=== PATIENT | female | born 2000 | race Caucasian/White ===

== ENCOUNTER 2022-12-21 14:35 | Emergency (ER) | payer SELFPAY ==
[2022-12-21 14:36] VITALS: BP 113/76; PULSE 92; RESP 16; TEMP 36.2; O2SAT 100; BMI 27.8
--- NOTE | 2022-12-21 14:45 | RAD_ITS ---
STUDY: X-RAY - RIGHT WRIST REASON FOR EXAM: Female, 22 years old. Wrist pain following injury. TECHNIQUE: 3 view(s) of the wrist were obtained. COMPARISON: None. FINDINGS: Normal visualized distal radius and ulna. Normal radiocarpal articulation. Normal distal radioulnar articulation. Normal carpal bones. Normal carpal articulations. Normal carpometacarpal articulation of the thumb. Normal second through fifth carpometacarpal articulations. Normal visualized metacarpal bones. The soft tissue structures are unremarkable. RAD/Wrist min 3 Views IMPRESSION: Normal x-ray examination of the wrist. Electronically Signed: Remigio Watts MD at 15:02 EST ,
--- NOTE | 2022-12-21 17:14 | ED.RN ---
pt reports that she will follow up with her pcp for care. lwbs
== END 2022-12-21 17:15 | disposition left against medical advice (07) ==
LOC: ED 17:53
DX: M25.531 Pain in right wrist (principal)
CPT/HCPCS: 73110

== ENCOUNTER 2024-10-04 20:19 | Emergency (ER) | payer OTHER, SELFPAY ==
[2024-10-04 20:19] VITALS: BP 137/101; PULSE 109; RESP 16; TEMP 37.2; O2SAT 98; BMI 29.5
[2024-10-04 21:21] VITALS: BP 133/78; PULSE 94; RESP 18; TEMP 37.2; O2SAT 99
--- NOTE | 2024-10-04 21:27 | EX.ED.DYSGE1 ---
HPI History of Present Illness Chief Complaint: Dental Detail of Chief Complaint: Dental pain and facial swelling Informant: patient Narrative Narrative: Patient presents to the emergency department with dental pain that initially started 4 days ago. She went to the emergency department at [facility] where she had attempted incision and drainage of the suspected abscess and she was started on amoxicillin. Patient subsequently the next day went to walk-in emergency dentistry and asked to have her tooth pulled at which time they refused because of the amount of swelling she was having and she was started on clindamycin. Patient presents now with ongoing swelling. She denies fevers or chills or sweats. PFSH PFS Medical History no medical history Home Medications ?Medication ?Instructions ?Recorded ?Last Taken ?Type clindamycin HCl 300 mg capsule 300 mg PO 10/04/24 Unknown History ketorolac 10 mg tablet 10 mg PO Q8H PRN PRN pain 10/04/24 Unknown History oxycodone-acetaminophen 5 mg-325 1 tab PO Q6H PRN PRN pain 10/04/24 Unknown History mg tablet Allergy/AdvReac Type Severity Reaction Status Date / Time cephalexin (From Keflex) Allergy Hives Verified 10/04/24 20:19 Family History no significant family his Surgical History no surgical history Social History Smoking Status: Current every day smoker tobacco type: e-cigarettes ROS ROS ED Review of Systems ROS Unobtainable: other Constitutional Constitutional ED: Reports lethargy; Denies chills, fever(s), sweats or weight loss Eyes Eyes: Denies blurry vision, change in vision or diplopia ENT ENT ED: Reports other Details: Dental pain and facial swelling ; Denies rhinorrhea or sore throat Cardiovascular Cardiovascular: Denies chest pain, orthopnea or racing heartbeat Respiratory/Chest Respiratory/Chest: Denies cough, dyspnea, dyspnea on exertion, orthopnea or sputum Gastrointestinal Gastrointestinal: Denies abdominal pain, diarrhea, nausea or vomiting Genitourinary Genitourinary ED: Denies dysuria, hematuria or urinary frequency Musculoskeletal Musculoskeletal: Denies arthralgias, back pain, myalgias or neck pain Integumentary Denies abscess, Abrasions or rash Neurologic Neurologic: Denies headache(s) or weakness Psychiatric Psychiatric: Denies anxiety, depression or suicidal thoughts Endocrine Endocrinology: Denies polydipsia, polyphagia or polyuria Hematologic/Lymphatic Hematologic/Lymphatic: Denies easy bleeding, easy bruising or lymphadenopathy Allergic/Immunologic Allergic/Immunologic ED: Denies mouth swelling, tongue swelling or urticaria EXAM Physical Exam Const Vital Signs: 10/04/24 20:19 10/04/24 21:21 10/04/24 22:00 Temperature 98.9 F 98.9 F 98.9 F Temperature Source Oral Oral Oral Pulse Rate 109 H 94 84 Respiratory Rate 16 18 18 Blood Pressure 137/101 H 133/78 H 131/76 H Blood Pressure Mean 113 96 94 Pulse Ox 98 99 97 Oxygen Delivery Method Room Air Room Air Room Air Positive well nourished and well developed General Appearance ED: well developed and NAD HEENT Reports TM's clear and moist mucous membranes HEENT Narrative: Patient with soft tissue swelling to the right lower jaw. She has gingival erythema and swelling with tenderness to palpation over tooth #30. Mild fluctuance. No facial cellulitis noted normocephalic and atraumatic; Negative for trauma or tenderness Tympanic Membrane ED: Yes TM's clear Eyes PERRL and EOMs intact bilaterally General Eye ED: Negative for pale conjunctiva or scleral icterus Neck no lymphadenopathy, supple and no JVD General: Negative for tenderness Chest Wall inspection of chest normal and palpation of chest normal Chest: Negative for tenderness Resp normal respiratory effort and clear to auscultation bilaterally Effort and Inspection: Negative for respiratory distress or pain with movement Auscultation: Negative for rhonchi, wheezes or diminished lung sounds Cardio regular rate, regular rhythm, S1 normal heart sound, S2 normal heart sound and no murmurs Peripheral Pulses: pulses 2+ throughout GI normal to inspection, nondistended, normoactive bowel sounds, soft to palpation, non-tender, non-distended and no masses Back/Spine no CVA tenderness and no thoracic nor lumbar tenderness Extremity normal to inspection General Extremety ED: Negative for edema General Extremity: Negative for edema Neuro oriented x3, CN's II-XII intact bilaterally, no sensory deficits noted and gait normal Sensorium / Orientation: awake, alert, oriented to person, oriented to place and oriented to time Motor Exam: strength 5/5 throughout and strength abnormal Psych mental status grossly normal Skin no rashes or lesions noted and no wounds MDM MDM MDM Narrative Medical decision making narrative: Patient presents with ongoing facial swelling. Clinically suspect a right lower dental abscess. No evidence of Krishan's angina. Floor the mouth is soft. She does have some mild trismus on exam. IV line will be established. Patient will be medicated with Toradol. Will obtain basic labs as well as a CT scan to evaluate further. I attempted incision and drainage of the suspected fluctuant portion of the abscess in moderate amount of blood was expressed with minimal purulent debris. Care of patient turned over to evening physician awaiting CT results and final disposition. Lab Data Attestation: I reviewed the patient's lab results. Labs: Laboratory Results - last 24 hr 10/04/24 21:29 WBC 11.5 H RBC 4.85 Hgb 13.9 Hct 40.7 MCV 83.9 MCH 28.7 MCHC 34.2 RDW Std Deviation 39.7 RDW Coeff of Gt 13.0 Plt Count 276 MPV 9.3 Immature Gran % (Auto) 0.400 Neut % (Auto) 69.1 Lymph % (Auto) 19.4 Edmonson % (Auto) 9.5 Eos % (Auto) 1.0 Baso % (Auto) 0.6 Absolute Neuts (auto) 8.0 H Absolute Lymphs (auto) 2.24 Nucleated RBC % 0 Sodium 136 Potassium 4.0 Chloride 100 Carbon Dioxide 21.5 Anion Gap 15 BUN 13 Creatinine 0.59 L Estim Creat Clear Calc 148.70 Est GFR (MDRD) Non-Af 129 BUN/Creatinine Ratio 22.0 H Glucose 81 Lactic Acid 1.1 Calcium 10.0 Discharge Plan Triage Chief Complaint: Dental ED Provider: Laquita Brooke Dx/Rx/DC Orders Clinical Impression: Abscess, dental Prescriptions: No Action clindamycin HCl 300 mg capsule 300 mg PO ketorolac 10 mg tablet 10 mg PO Q8H PRN PRN (Reason: pain) oxycodone-acetaminophen 5-325 mg tablet 1 tab PO Q6H PRN PRN (Reason: pain) Primary Care Provider: Care Physician,No Primary Referrals: Care Physician,No Primary [Primary Care Provider] - Print Language: [place]
[2024-10-04] MEDS: Ketorolac 30 MG/ML Syringe IV (21:37)
[2024-10-04 21:41] LABS: Hematocrit 40.7 % (37-47); Hemoglobin 13.9 g/dL (12.0-15.0); Immature Granulocytes Count 0.050 X10^3/uL (0.0-0.0); Mean Corp Hgb Conc 34.2 g/dL (32-36); Mean Corpuscular Volume 83.9 fL (81-99); Mean Platelet Vol. 9.3 fl (6.2-12.0); NRBC Flagged by Analyzer 0 % (0-5); Platelet Count 276 K/mm3 (150-450); RBC Distribution Width CV 13.0 % (11.6-14.6); RBC Distribution Width SD 39.7 fl (35.1-43.9); Red Blood Count 4.85 M/mm3 (4.2-5.4); White Blood Count 11.5 K/mm3 (4.4-11.0)
[2024-10-04] MEDS: Piperacil/Tazobactam 4.5 GM in 0.9% Normal Saline (100mL MB+) 100 ML IV (21:42)
--- OUTSIDE RECORDS SUMMARY | 2024-10-04 21:52 | XMS RPT_ITS | CCD ---
Author Organization [facility] Care Team Providers Care Rug Dyer Name Role Phone Guillermo Lewis Unavailable Unavailable Primay Care Physicia, No Unavailable Unavail able Unavailable Primary Care Provider UnavailAKASH Ramirez Attending Unavailable SARAH YANEZ DO Attending Unavailable BLACK, SARAH LAY Primary Care Unavailable SARAH YANEZ DO Admitting Unavailable YULISSA HSIEH Consulting Unavailable PROVIDER, UNKNOWN Consulting Unavailable Allergies Allergy Classification Reported Allergen(s) Allergy Type Date of Onset Reaction(s) Facility (2 sources) cephalexin; Translations: [CEPHALEXIN] Drug Allergy 06-23-2016 [facility] Repository (2 sources) Cephalexin Drug Allergy 12-21-2022 [facility] (1 source) Cephalexin Drug Allergy [facility] Repository Problems Active Problems Problem Classification Problem Date Documented Da te Episodic/Chronic Other inflammatory condition of skin (1 source) Sunburn of first degree; Translations: [Sunburn of first degree] 08-25-2024 Episodic Other inflammatory condition of skin (1 source) Sunburn of first degree; Translations: [Sunburn of first degree] Onset: 08-25-2024 Episodic Past or Other Problems Problem Classification Problem Date Documented Da te Episodic/Chronic Blindness and vision defects (1 source) Other visual disturbances; Translations: [OTHER VISUAL DISTURBANCES] Onset: 07-27-2016 Episodic Headache, including migraine (1 source) Headache; Translations: [HEADACHE] Onset: 07-27-2016 Episodic Results Test Name Value Interpretation Reference Range Facil ity ED MED ADMINISTRATION DETAIL on 10-02-2024 ED MED ADMINISTRATION DETAIL Rn Bariatric - JUDITH ARAUZ, : 2000, , Medication Administration Record [address] [address] [id number] 10/02/2024 Patient: JUDITH ARAUZ Sex: Female : 2000 Age: 24y MEASUREMENTS: Wt: 77.1 kg, Ht/Hussain: 64.0 in, BMI: 29.18 ALLERGIES: Cephalosporins Medication Ordered Medication Administration Date/Time Lidocaine-Epinephr Completed ine 1% Injection 10 03:03 10/02/2024 mL Joyce Méndez R.N. Order Comments: 03:03 10/02/[address] Black Méndez R.N. Pen-Vee K PO 500 03:02 10/02 Pen-Vee K PO 500 Given mg (NOW x1) mg given. Allergies verified and 03:02 10/02/2024 confirmed 5 rights. - 03:02 Ella Key R.N. Scanned OxyCODONE-APAP 03:15 Given 5-325 (Percocet) PO 10/02 OxyCODONE-APAP 03:15 10/02/2024 1 tab (NOW x1, 5-325 (Percocet) PO 1 tab given. Joyce Méndez R.N. HIGH ALERT Allergies verified and confirmed Scanned MEDICATION) 5 rights. - 03:15 Joyce Méndez R.N. 1 of 1 Normal [facility] ED NURSES CLINICAL NOTEon ED NURSES CLINICAL NOTE Nurse Narrative - JUDITH ARAUZ, : 2000, , Nurse Clinical Narrative [address] [address] [id number] 10/02/2024 02:49:00 Patient: JUDITH ARAUZ Sex: Female : 2000 Age: 24y Disposition: Discharge to Home Disposition Decision Time: 03:20 10/02/2024 Departure Time: 03:27 10/02/2024 TRIAGE Arrived by private vehicle. Historian: (patient). Accompanied by friend. Primary physician (none). Triage time: 02:41 10/02/2024. Acuity: LEVEL 4. Chief Complaint: RIGHT LOWER TOOTHACHE and SWELLING OF JAW / FACE. This started last night. The patient has had a toothache. SEPSIS SCREEN: NEGATIVE. SIRS criteria negative. No possible sources of infection. -- 02:10/02/24 NAHEED Méndez R.N. 02:10/02/24. BP: 136/93 MAP: 107. HR: 102. RR: 17. O2 saturation: 97% Temperature: 97.4 F. Pain level now 8/10. -- 02:10/02/24 NAHEED Méndez R.N. Measurements: 02:10/02/24 Wt: 77.1 kg, Ht/Hussain: 64.0 in, BMI: 29.18 -- 02:10/02/24 NAHEED Méndez R.N. Medications: no known home medications -- 02:10/02/24 NAHEED Méndez R.N. Allergies: 1 of 3 Nurse Narrative - JUDITH ARAUZ, : 2000, , Cephalosporins -- 02:10/02/24 NAHEED Méndez R.N. Problems: no known problem -- 02:10/02/24 NAHEED Méndez R.N. Surgeries: no known surgical history -- 02:10/02/24 NAHEED Méndez R.N. History 02:10/02/24. SOCIAL HX: Regular vaping. Occasional alcohol use. No drug use. The patient has not traveled outside the [place] Infectious disease exposure: No infectious disease exposure. ABUSE ASSESSMENT: The patient answered yes to the question(s) Do you feel safe in your home? and no to the question(s) Are you afraid to go home?. SELF HARM ASSESSMENT: Self harm assessment was performed. The patient answered no to the question(s) Have you recently felt down, depressed, or hopeless? and Do you have thoughts of harming or killing yourself?. FALL RISK ASSESSMENT: Fall risk assessment completed. No risk factors identified. -- 02:10/02/24 NAHEED Méndez R.N. Interventions 02:10/02/24. Identification band and allergy band on patient. -- 02:10/02/24 NAHEED Méndez R.N. PHYSICAL ASSESSMENT 02:57 10/02/24. Ambulatory to room. GENERAL / NEURO / PSYCH: Alert. Oriented X 4. Appears in no acute distress. HEENT: Pupils equal, round and reactive to light. Voice within normal limits. Dental tenderness (right lower molar). Mucous membranes are pink. RESPIRATORY: Respirations not labored. SKIN: Skin is warm and dry. Normal skin turgor. -- 02:57 10/02/24 NAHEED Méndez R.N. 2 of 3 Nurse Narrative - JUDITH ARAUZ, : 2000, , NURSING PROGRESS NOTES 02:55 10/02/24. ( MD at bedside discussing plan of care). -- 02:55 10/02/24 NAHEED Méndez R.N. 03:02 10/02/24. Pen-Vee K PO 500 mg given. Allergies verified and confirmed 5 rights. -- 03:02 10/02/24 NAHEED Méndez R.N. 03:03 10/02/24. ( MD at bedside draining abscess). -- 03:13 10/02/24 NAHEED Méndez R.N. 03:15 10/02/24. OxyCODONE-APAP 5-325 (Percocet) PO 1 tab given. Allergies verified and confirmed 5 rights. -- 03:15 10/02/24 NAHEED Méndez R.N. 03:20 10/02/24. ( Ice pack given to pt at this time). -- 03:20 10/02/24 NAHEED Méndez R.N. DISPOSITION / DISCHARGE 03:10/02/24. BP: 141/78 MAP: 99. -- 03:27 10/02/24 NAHEED Méndez R.N. Departure time: 03:10/02/2024. Condition at departure: stable. No learning barriers present. Reviewed medication(s). Treatments reviewed. Reviewed referral to a dentist. Patient verbalized understanding. Written instructions provided in Hebrew. The patient was discharged home and accompanied by lathe hand. The patient left ambulatory and via private vehicle. Perioperative Manager driving. -- 03:28 10/02/24 NAHEED Méndez R.N. (Electronically signed by Joyce Méndez R.N. 10/02/24 03:28:29 EDT) Generated by [facility] 3 of 3 Normal [facility] ED ORDER SHEET (CPOE ONLY)on 10-02-2024 ED ORDER SHEET (CPOE ONLY) Order Sheet - JUIDTH ARAUZ, : 2000, , Order Sheet [id number] [place] [address] [id number] 10/02/2024 Patient: JUDITH ARAUZ Sex: Female : 2000 Age: 24y MEASUREMENTS: Wt: 77.1 kg, Ht/Hussain: 64.0 in, BMI: 29.18 ALLERGIES: Cephalosporins MEDICATION/IV/DRIP/F LUID ORDERS Order Description Priority Entered Acknowledged Completed Lidocaine-Epinephrin e 1% 02:58 10/02/2024 03:03 [id number] mL (NOW x1) Sarah Yanez D.O. 10/02/2024 Joyce Méndez R.N. Order Comments: 03:03 10/02/2024: Order Completed per Dr. Black Méndez R.N. Pen-Vee K PO500 mg (NOW x1) 02:59 10/02/2024 03:02 Sarah Yanez D.O. 10/02/2024 Joyce Méndez R.N. Reason for ordering with alerts: Clinical consideration given --02:59 10/02/2024 Sarah Yanez D.O. OxyCODONE-APAP 5-325 03:13 10/02/2024 03:15 (Percocet) PO1 tab (NOW x1, Sarah Yanez D.O. 10/02/2024 HIGH ALERT MEDICATION) Joyce Méndez R.N. LAB ORDERS 1 of 2 Order Sheet - JUDITH ARAUZ, : 2000, , Order Description Priority Entered Acknowledged Collected Completed DIAGNOSTIC STUDY ORDERS Order Description Priority Entered Acknowledged Completed STAFF ORDERS Order Description Priority Entered Acknowledged Collected Completed [Electronically signed by Sarah Yanez D.O. (10/02/2024 03:29 EDT)] 2 of 2 Normal [facility] ED PHYSICIAN CLINICAL REPORT on 10-02-2024 ED PHYSICIAN CLINICAL REPORT Narrative - JUDITH ARAUZ : 2000, , Physician Clinical Narrative [facility] [address] [place] [address] [id number] 10/02/2024 02:49:00 Patient: JUDITH ARAUZ Sex: Female : 2000 Age: 24y Disposition: Discharge to Home Disposition Decision Time: 03:20 10/02/2024 Departure Time: 03:27 10/02/2024 Measurements Wt: 77.1 kg, Ht/Hussain: 64.0 in, BMI: 29.18 Initial Vital Sign Measured Time BP MAP HR RR O2Sat ETCO2 Temp Pain GCS RTS 02:53 10/02/2024 136/93 107 102 17 97% 97.4 F 8 Time Seen: 02:40 10/02/2024. Arrived- By private vehicle. Historian- patient. HISTORY OF PRESENT ILLNESS Chief Complaint: DENTAL PAIN. This started yesterday and is still present. No sore throat, mouth sores, nasal discharge or congestion or ear pain. No swollen jaw or face, jaw pain or facial pain. The patient has had toothache. Similar symptoms previously. None. Recent medical care: Not recently seen/assessed. REVIEW OF SYSTEMS ENDO/HEME/LYMPH: No enlarged lymph nodes. RESPIRATORY: No cough or difficulty breathing. EYES: No eye discomfort. CONSTITUTIONAL: No fever. : No difficulty with urination. NEUROLOGICAL: No headache 1 of 4 Narrative - JUDITH ARAUZ, : 2000, , or fainting episodes. MUSCULOSKELETAL: No joint pain. SKIN: No skin rash. GI: No nausea, diarrhea, abdominal pain or vomiting. CVS: No chest pain. PAST HISTORY See nurses notes. no known problem Surgeries: no known surgical history Medications: no known home medications Allergies: Cephalosporins SOCIAL HISTORY Smoker- current status unknown. Regular vaping. Regular alcohol use. ADDITIONAL NOTES The nursing notes have been reviewed. PHYSICAL EXAM Appearance: Alert. No acute distress. Eyes: Pupils equal, round and reactive to light. ENT: Dental decay and tenderness. Ears normal. Nose normal. Pharynx normal. Lips normal. Uvula midline. No peritonsillar mass, muffled or hoarse voice, drooling or trismus. (Positive swelling to the right mandible.). Neck: Trachea midline. No adenopathy. Neck supple. CVS: Normal heart rate and rhythm. Heart sounds normal. Pulses normal. Respiratory: No respiratory distress. Breath sounds normal. Chest nontender. Abdomen: Soft and nontender. No organomegaly. Skin: Normal skin color. No rash. 2 of 4 Narrative - JUDITH ARAUZ, : 2000, , Extremities: Extremities exhibit normal ROM. Extremities nontender. Neuro: Oriented X 3. No motor deficit. No sensory deficit. PROGRESS AND PROCEDURES Dental Nerve Block: Time: 02:59 10/02/2024. Inferior Alveolar. Procedure performed on the right side. Landmarks were identified. Total volume of 5 mL 1% Lidocaine infiltrated using a 27-gauge needle. Patient cooperative during procedure. Complications encountered- bleeding. Excellent anesthesia achieved. Incision Drainage of Abscess: Time: 03:03 10/02/2024. The abscess is located (right lower molar). The risks of the procedure, benefits and alternatives were explained. Local anesthesia provided using 1% lidocaine with epi. The abscess was incised with a #11 surgical blade. A moderate amount of pus was drained. Cavity was packed with gauze. Patient tolerated procedure well. Patient was observed for 30 minutes. Estimated blood loss: 2 mL. MEDICAL DECISION MAKING: Test(s) not done: based on risk / benefit analysis. Narcotics and antibiotics were given. The pain has resolved. The exam got better. ( Dental block with 1% lidocaine with epinephrine). (Complaining of pain and swelling to the right lower jaw. The swelling started a couple hours ago. But she states her right lower molar has been painful since Bo which is 2 days ago. Denies any fever. Denies any trauma to the tooth. Does not have a dentist. On exam she does have considerable swelling to the area between the buccal mucosa in the gum along the right lower dentition consistent with a dental abscess. She does have some swelling to the right mandible adjacent to that area. Not a lot of swelling but it is definitely present. No drooling. No pharyngeal erythema. Neck is supple. No anterior posterior cervical lymphadenopathy. Right tympanic membrane is not erythematous. Right buccal mucosa adjacent to the right lower gumline was incised with a 11. Blade after the area was anesthetized with a dental block using 5 mL 1% lidocaine with epinephrine. Patient did get good local anesthesia with that and tolerated the incision and drainage well. The area did drain a moderate amount of white. Discharge. Patient was placed on pen VK 500 mg 1 p.o. q.6 hours times 10 days. Was given a prescription for Toradol because she would like to go to work tonight. Was also given a prescription for Percocet 1 ever (more content not included)... Normal [facility] ED SUPER BILLon 10-02-2024 ED SUPER BILL [facility] - TOMAS ARAUZNON, : 2000, , [address] [address] [id number] 10/02/2024 Patient: JUDITH ARAUZ Sex: Female : 2000 Age: 24y Item Facility Professional Category Description Code Code Quantity Fee Total Nurse/E/M EMERGENCY 916137 1 $0.00 $0.00 DEPARTMENT VISIT MODERATE SEVERITY (47688-86) Physician/Procedures Nerve block: [id number] [id number] 1 $0.00 $0.00 Dental (74563-IP) Grand Total $0.00 Providers Sarah Yanez D.O. Chief Complaint DENTAL PAIN. Principal Diagnosis Alveolar dental abscess. No sinus tract or Santos's angina. 1 of 2 [facility] - JUDITH ARAUZ, : 2000, , ICD-10 Codes K04.7: Periapical abscess without sinus 2 of 2 Normal [facility] ED VISIT SUMMARYon ED VISIT SUMMARY Visit Overview - JUDITH ARAUZ, : 2000, , Visit Overview [id number] [facility] [place] [address] [id number] 10/02/2024 Patient: JUDITH ARAUZ Sex: Female : 2000 Age: 24y 10/02/2024 03:30 AM EDT ED Arrival:02:49 10/02/2024 EDT Status: Recent Travel:no Language:eng Adv Directive: Isolation Status: Ethnicity:N Fall Risk:no risk Infectious Disease Exposure:no Measurements:5'4 / 162.6 Self-Harm Status:risk Sepsis Screen:negative cm 170.0 lb / 77.1 kg Chief Complaint:RIGHT LOWER TOOTHACHE, SWELLING OF JAW / FACE, and (none) ALLERGIES Cephalosporins HOME MEDICATIONS None PAST MEDICAL HISTORY / PROBLEMS None See nurses notes 1 of 3 Visit Overview - JUDITH ARAUZ, : 2000, , PAST SURGICAL HISTORY No Surgeries SOCIAL HISTORY Smoking status: Unknown Alcohol use: Yes Drug use: No ED COURSE MEDICATIONS GIVEN IN EMERGENCY DEPARTMENT 03:02 10/02/24 Pen-Vee K PO 500 mg 03:15 10/02/24 OxyCODONE-APAP 5-325 (Percocet) PO 1 tab IV SITE INFORMATION INTAKE OUTPUT REASSESMENT (most recent) 02:57 10/02/24. Ambulatory to room. GENERAL / NEURO / PSYCH: Alert. Oriented X 4. Appears in no acute distress. HEENT: Pupils equal, round and reactive to light. Voice within normal limits. Dental tenderness (right lower molar). Mucous membranes are pink. RESPIRATORY: Respirations not labored. SKIN: Skin is warm and dry. Normal skin turgor. VITAL SIGNS First Vitals Last Vitals Temp 02:53 10/02/24 97.4 F Temp 03:22 10/02/24 BP 02:53 10/02/24 136/93 BP 03:22 10/02/24 141/78 HR 02:53 10/02/24 102 HR 03:22 10/02/24 RR 02:53 10/02/24 17 RR 03:22 10/02/24 O2 Sat 02:53 10/02/24 97% O2 Sat 03:10/02/24 Pain 02:53 10/02/24 8 Pain 03:10/02/24 ETCO2 02:53 10/02/24 ETCO2 03:10/02/24 GCS 02:53 10/02/24 GCS 03:10/02/24 2 of 3 Visit Overview - JUDITH ARAUZ, : 2000, , First Vitals Last Vitals RTS 02:53 10/02/24 RTS 03:10/02/24 PROCEDURES NURSING INTERVENTIONS LABS / STUDIES CLINICAL IMPRESSION ALVEOLAR DENTAL ABSCESS. NO SINUS TRACT OR SANTOS'S ANGINA 3 of 3 Normal [facility] ED VITALS FLOW SHEETon 10-02 ED VITALS FLOW SHEET Vitals - JUDITH ARAUZ, : 2000, , Vital Sign Flow Sheet [address] [address] [id number] 10/02/2024 Patient: JUDITH ARAUZ Sex: Female : 2000 Age: 24y Measurements Wt: 77.1 kg, Ht/Hussain: 64.0 in, BMI: 29.18 Measured Time BP MAP HR RR O2Sat ETCO2 Temp Pain GCS RTS 03:10/02/2024 141/78 99 02:53 10/02/2024 136/93 107 102 17 97% 97.4 F 8 1 of 1 Normal [facility] CNOVon 08-25-2024 CNOV Office Visit ([facility]) DAVONTEJUDITH BERRIOS ([id number]) [birth year] F Date Time Provider Department 08/25/24 2:30 PM AKASH PARRISH During your visit today, we recorded the following information about you: Temperature Pulse Respiration Blood pressure 97.7 degrees 81/minute 18/minute 116/80 Weight Last Period 78 kg 07/27/24 Akash Parrish APRN.MARCIO 08/25/2024 2:39 PM Signed This note was created using eMaginriter. Subjective Judith Arauz is a 24 year old female. HPI About 5 days ago patient was [place]ubing [place] a river with no sunscreen and was sunburn on her bilateral legs, anterior aspect. She states that for the most part the sunburn is beginning to resolve other than the bilateral lower legs. She notes that the area is still painful. Denies any blistering. Denies any fever or any other health concerns. Review of Systems As above Objective BP 116/80 Pulse 81 Temp 36.5 ?C (97.7 ?F) Resp 18 Wt 78 kg (171 lb 15.3 oz) LMP 07/27/2024 (Approximate) SpO2 99% Physical Exam Vitals and nursing note reviewed. Constitutional: General: She is not in acute distress. Appearance: Normal appearance. She is not ill-appearing. HENT: Head: Normocephalic. Pulmonary: Effort: Pulmonary effort is normal. Musculoskeletal: General: Normal range of motion. Skin: General: Skin is warm. Comments: Erythema to bilateral lower legs consistent with deep sunburn. No blistering noted. There is no surrounding erythema or streaking noted. Neurological: General: No focal deficit present. Mental Status: She is alert and oriented to person, place, and time. Psychiatric: Mood and Affect: Mood normal. Behavior: Behavior normal. Assessment and Plan ASSESSMENT/PLAN: 1. Sunburn of first degree - ICD9: 692.71, ICD10: L55.0 Patient does note that the bulk of the sunburn area is improving. She denies any increased erythema or streaking. I did discussed with her that symptoms are most consistent with a deep sunburn and symptoms will take several more days to resolve. I strongly encouraged her to avoid sun exposure until symptoms have resolved. Did consider cellulitis but as patient notes that the general area of erythema is decreasing I felt this is unlikely. Akash Parrish APRN.CNP Allergies As of Date: 08/25/2024 Noted Allergy Reaction CEPHALEXIN 08/25/2024 4 - Hives Date Reviewed: 08/25/2024 Reviewed by: Akash Parrish APRN.CNP - Fully Assessed Reason for Visit: Derm Problem [33] Cmt: X 5-6 days, did not have sun block on Primary Visit Diagnosis:Sunburn of first degree [L55.0] Problem List As Of Date: 08/25/2024 (None) Encounter Status:Closed by AKASH PARRISH on 08/25/24 Normal [facility] Vital Signs Date Time Vital Sign Value Performing Clinician Tyleri alex 08-25-2024 14:25-0400 Body temperature 97.7 [degF] Akash Parrish COMPUTING TUTOR.CUTTING TABLE OPERATOR FIRST Work Phone: [facility] 08-25-2024 14:25-0400 Body weight 78 kg Akash Shivani COMPUTING TUTOR.CUTTING TABLE OPERATOR FIRST Work Phone: [facility] 08-25-2024 14:25-0400 Diastolic blood pressure 80 mm[Hg] Akash Shivani COMPUTING TUTOR.CUTTING TABLE OPERATOR FIRST Work Phone: [facility] 08-25-2024 14:25-0400 Heart rate 81 /min Akash Shivani COMPUTING TUTOR.CUTTING TABLE OPERATOR FIRST Work Phone: [facility] 08-25-2024 14:25-0400 Respiratory rate 18 /min Akash Shivani COMPUTING TUTOR.CUTTING TABLE OPERATOR FIRST Work Phone: [facility] 08-25-2024 14:25-0400 SaO2% (BldA) [Mass fraction] 99 % Akash Shivani COMPUTING TUTOR.CUTTING TABLE OPERATOR FIRST Work Phone: [facility] 08-25-2024 14:25-0400 Systolic blood pressure 116 mm[Hg] Akash Shivani COMPUTING TUTOR.CUTTING TABLE OPERATOR FIRST Work Phone: [facility] 12-21-2022 14:36-0500 Body height 162.56 cm [facility] 12-21-2022 14:36-0500 Body mass index (BMI) [Ratio] 27.8 kg/m2 [facility] 12-21-2022 14:36-0500 Body temperature 97.2 [degF] [facility] 12-21-2022 14:36-0500 Body weight 73.48 kg [facility] 12-21-2022 14:36-0500 Diastolic blood pressure 76 mm[Hg] [facility] 12-21-2022 14:36-0500 Heart rate 92 /min [facility] 12-21-2022 14:36-0500 Respiratory rate 16 /min [facility] 12-21-2022 14:36-0500 SaO2% (BldA) [Mass fraction] 100 % [facility] 12-21-2022 14:36-0500 Systolic blood pressure 113 mm[Hg] [facility] Encounters Encounter Date Encounter Type Care Provider Facility Start: 10-02-2024 End: 10-02-2024 Emergency department patient visit SARAH LAY [facility] Start: 08-25-2024 End: 08-25-2024 Patient encounter procedure Akash Parrish APRN.CUTTING TABLE OPERATOR FIRST Work Phone: [facility] Comment on above: Sunburn of first deg ree (Primary Dx) Start: 08-25-2024 End: 08-25-2024 ambulatory AKASH SHIVANI Facility:[facility] Start: 12-21-2022 End: 12-21-2022 Emergency department patient visit [facility] Work Phone: Start: 06-23-2016 End: 06-23-2016 Emergency department patient visit Guillermo Debbie Facility:[facility] Procedures Date Procedure Procedure Detail Performing Clinician Start: 12-21-2022 Plain x-ray of wrist Plan of Treatment Date Care Activity Detail Author Start: 10-16-2024 Influenza vaccination Influenza Vacc ine (#1) [facility] Start: 10-17-2023 Covid-19 Vaccine ( season) Covid-19 Vaccine ( season) [facility] Start: 06-20-2022 Urine microalbumin profile DTaP,Tdap,Td Vaccine (7 - Td or Tdap) [facility] Start: 01-03-2021 Screening for malign ant neoplasm of cervix Cervical Cancer Screening [facility] Start: 01-03-2019 Pneumococcal vaccination Pneum ococcal Vaccine (1 of 2 - PCV) [facility] Start: 01-03-2018 Anxiety Screening Anxiety Screening [facility] Start: 01-03-2018 Depression Screening Depression Scre renan [facility] Start: 01-03-2018 Hepatitis C screening Hepatitis C Sc malou [facility] Start: 01-03-2018 HIV screening HIV Screening [facility] Start: 01-03-2015 HPV Vaccine (1 - 3-d ose series) HPV Vaccine (1 - 3-dose series) [facility] Start: 01-03-2014 Peds To Adult Transi tion Annual Assessment Peds To Adult Transition Annual Assessment [facility] Start: 2012 Peds To Adult Transi tion Initial Discussion Peds To Adult Transition Initial Discussion [facility] Payers Date Payer Category Payer Private Health Insurance [facility] [employer] [id number] 2024 Unknown [id number] 2000 Unknown [id number] Self-pay Unknown [id number] Social History Date Type Detail Facility [facility]: [facility] Start: 2000 Sex Assigned At Female W [facility] Start: 08-25-2024 [facility] History of tobacco use Cigarette Smoker [facility] Start: 08-25-2024 Tobacco use and exposure Smokeless tobacco non-user [facility] Start: 08-25-2024 History of Social function [facility] Start: 08-25-2024 Tobacco use panel [facility] Start: 2000 Sex assigned at Not on file [facility] Progress note 08-25-2024 Note Date & Type Note Facility 08-25-2024 Note HNO ID: [id number] Author: AKASH PARRISH APRN.MARCIO Service: ? Author Type: Nurse Practitioner Type: Progress Notes Filed: 08/25/2024 14:39 Note Text: This note was created using eMaginriter. Subjective Judith Arauz is a 24 year old female. HPI About 5 days ago patient was [place] a river with no sunscreen and was sunburn on her bilateral legs, anterior aspect. She states that for the most part the sunburn is beginning to resolve other than the bilateral lower legs. She notes that the area is still painful. Denies any blistering. Denies any fever or any other health concerns. Review of Systems As above Objective BP 116/80 Pulse 81 Temp 36.5 ?C (97.7 ?F) Resp 18 Wt 78 kg (171 lb 15.3 oz) LMP 07/27/2024 (Approximate) SpO2 99% Physical Exam Vitals and nursing note reviewed. Constitutional: General: She is not in acute distress. Appearance: Normal appearance. She is not ill-appearing. HENT: Head: Normocephalic. Pulmonary: Effort: Pulmonary effort is normal. Musculoskeletal: General: Normal range of motion. Skin: General: Skin is warm. Comments: Erythema to bilateral lower legs consistent with deep sunburn. No blistering noted. There is no surrounding erythema or streaking noted. Neurological: General: No focal deficit present. Mental Status: She is alert and oriented to person, place, and time. Psychiatric: Mood and Affect: Mood normal. Behavior: Behavior normal. Assessment and Plan ASSESSMENT/PLAN: 1. Sunburn of first degree - ICD9: 692.71, ICD10: L55.0 Patient does note that the bulk of the sunburn area is improving. She denies any increased erythema or streaking. I did discussed with her that symptoms are most consistent with a deep sunburn and symptoms will take several more days to resolve. I strongly encouraged her to avoid sun exposure until symptoms have resolved. Did consider cellulitis but as patient notes that the general area of erythema is decreasing I felt this is unlikely. Akash Parrish APRN.CUTTING TABLE OPERATOR FIRST [facility] History of Present illness Narrative 08-25-2024 Akash Parrish APRN.MARCIO - 08/25/2024 2:37 PM EDT Note Date & Type Note Facility 08-25-2024 History of Presen t illness Narrative Images from the original note were not included. This note was created using eMaginriter. Subjective Judith Arauz is a 24 year old female. HPI About 5 days ago patient [place] sunscreen and was sunburn on her bilateral legs, anterior aspect. She states that for the most part the sunburn is beginning to resolve other than the bilateral lower legs. She notes that the area is still painful. Denies any blistering. Denies any fever or any other health concerns. Review of Systems As above Objective BP 116/80 Pulse 81 Temp 36.5 C (97.7 F) Resp 18 Wt 78 kg (171 lb 15.3 oz) LMP 07/27/2024 (Approximate) SpO2 99% Physical Exam Vitals and nursing note reviewed. Constitutional: General: She is not in acute distress. Appearance: Normal appearance. She is not ill-appearing. HENT: Head: Normocephalic. Pulmonary: Effort: Pulmonary effort is normal. Musculoskeletal: General: Normal range of motion. Skin: General: Skin is warm. Comments: Erythema to bilateral lower legs consistent with deep sunburn. No blistering noted. There is no surrounding erythema or streaking noted. Neurological: General: No focal deficit present. Mental Status: She is alert and oriented to person, place, and time. Psychiatric: Mood and Affect: Mood normal. Behavior: Behavior normal. Assessment and Plan ASSESSMENT/PLAN: 1. Sunburn of first degree - ICD9: 692.71, ICD10: L55.0 Patient does note that the bulk of the sunburn area is improving. She denies any increased erythema or streaking. I did discussed with her that symptoms are most consistent with a deep sunburn and symptoms will take several more days to resolve. I strongly encouraged her to avoid sun exposure until symptoms have resolved. Did consider cellulitis but as patient notes that the general area of erythema is decreasing I felt this is unlikely. Akash Parrish APRN.CUTTING TABLE OPERATOR FIRST documented in this encounter [facility] Evaluation note Note Date & Type Note Facility Evaluation note No assessment information availa [facility] Work Phone: Evaluation note Note Date & Type Note Facility Evaluation note Diagnosis Sunburn of first degree- Primary Sunburn documented in this encounter [facility] Summary Purpose Family History No Family History Records FoundNo Family History Records FoundNo Family History Records Found Advance Directives No Advanced Directives Records FoundNo Advanced Directives Records FoundNo Advanced Directives Records Found Chief Complaint and Reason for Visit Chief Complaint right wrist Additional Source Comments INFORMATION SOURCE (unrecogn ized section and content) DATE CREATED AUTHOR 08/11/2017 [facility] DATE CREATED AUTHOR AUTHOR'S ORGANIZ ATION 08/30/2024 [facility] DATE CREATED AUTHOR AUTHOR'S ORGANIZ ATION 10/02/2024 [facility] Care Teams (unrecognized sec tion and content) Team Status: Active Member Role Status Dates No Primary Care Physician Family Provider Active No Primary Care Physician Primary Care Provider Active Team Status: Inactive Member Role Status Dates No Primary Care Physician Primary Care Provider Active Ed Physician Provider Emergency Provider Active Goals (unrecognized section and content) Goals may be documented in a n alternate section Source Comments (unrecognize d section and content) In the event this informatio n is protected by the Federal Confidentiality of Alcohol and Drug Abuse Patient Records regulations: The Federal rules restrict any use of the information to criminally investigate or prosecute any alcohol or drug abuse patient.[facility] Reason for Visit (unrecogniz ed section and content) Reason Comments Derm Problem X 5-6 days, did not have sun block on FOR RECORDS PERTAINING TO PATIENTS WHO ARE OR HAVE BEEN ENROLLED IN A CHEMICAL DEPENDENCY/SUBSTANCEABUSE PROGRAM, SOME INFORMATION MAY BE OMITTED. This clinical summary was aggregated from multiple sources. Caution should be exercised in using it in the provision of clinical care. This summary normalizes information from multiple sources, and as a consequence, information in this document may materially change the coding, format and clinical context of patient data. In addition, data may be omitted in some cases. CLINICAL DECISIONS SHOULD BE BASED ON THE PRIMARY CLINICAL RECORDS. [facility]. provides no warranty or guarantee of the accuracy or completeness of information in this document.
[2024-10-04 22:00] VITALS: BP 131/76; PULSE 84; RESP 18; TEMP 37.2; O2SAT 97
--- NOTE | 2024-10-04 22:00 | CT_ITS ---
PROCEDURE: CT SINUS/FACIAL BONE WITH CONTRAST 10/04/2024 REASON FOR EXAM: RIGHT LOWER DENTAL ABSCESS/FACIAL SWELLING TECHNIQUE: CT SINUS/FACIAL BONE WITH CONTRAST. Coronal and Sagittal reconstruction series were provided. CONTRAST: Isovue 370 VOLUME: 97 mL One or more dose reduction techniques were used (e.g., Automated exposure control, adjustment of the mA and/or kV according to patient size, use of iterative reconstruction technique). RADIATION DOSE SUMMARY: CTDlvol: 29.38 mGy DLP: 804.57 mGycm COMPARISON: None. FINDINGS: Prominent subcutaneous inflammatory changes and swelling/edema in the right perimandibular soft tissues, with a small rim enhancing fluid collection compatible with subperiosteal abscess along the right body of the mandible, measuring up to 22 mm transversely and craniocaudally. No aggressive osseous erosion or destructive changes. Well-aerated paranasal sinuses and bilateral mastoid air cells. The visualized airway is patent and midline. Orbital contents are unremarkable. Major salivary glands appear normal and symmetric. Normal appearance of the partially imaged thyroid gland. Increased number of mildly prominent submental, and right submandibular upper cervical lymph nodes, presumably reactive. CT/Sinus/Facial Bone WITH Contras IMPRESSION: Right perimandibular subperiosteal abscess measuring up to 22 mm, with prominen t inflammatory changes/edema in the surrounding soft tissues. Reactive right cervical adenopathy. Reading Location: [id number]
[2024-10-04 22:16] LABS: Anion Gap 15 (5-15); BUN 13 mg/dL (4-19); BUN/Creat Ratio 22.0 RATIO (10-20); Calcium,Total 10.0 mg/dL (7.6-11.0); Carbon Dioxide 21.5 mmol/L (21.0-32.0); Chloride 100 mmol/L (98-108); Estimated Creatinine Clearance 148.70 ml/min (50-250); Glucose 81 mg/dL (70-99); Potassium 4.0 mmol/L (3.3-5.1)
[2024-10-04 23:24] VITALS: BP 138/79; PULSE 75; RESP 18; TEMP 37.1; O2SAT 99
[2024-10-04 23:59] VITALS: BP 138/79; PULSE 75; RESP 18; O2SAT 95
== END 2024-10-05 00:13 | disposition home or self-care (01) ==
PROVIDERS: Emergency Provider Emergency Medicine; Visit Provider Emergency Medicine
DX: K04.7 Periapical abscess without sinus (principal); F17.290 Nicotine dependence, other tobacco product, uncomplicated
CPT/HCPCS: 41800; 70487; 80048; 83605; 85025; 96365; 96375; 99283; Q9967; A4216